=== PATIENT | female | born 1950 | race African-American/Black ===

== ENCOUNTER 2017-04-09 06:48 | Emergency (ER) | payer OTHER ==
[~2017-04-09] VITALS: Ht 160 cm; Wt 63.0 kg
[2017-04-09 06:53] VITALS: BP 150/97
[2017-04-09] MEDS ORDERED: SODIUM CHLORIDE 0.9% 500 ML IV ONE (07:03)
[2017-04-09 07:23] LABS: BASOPHILS % 1.2 % (0.0-2.0); EOSINOPHILS % 3.4 % (0.0-5.0); HEMATOCRIT. 37.8 % (36.0-48.0); HEMOGLOBIN. 13.2 g/dL (12.0-16.0); LYMPHOCYTES % 30.9 % (20.0-50.0); MEAN CORPUSCULAR HEMOGLOBIN 30.8 pg (28.0-32.0); MEAN PLATELET VOLUME 8.1 fl (7.4-10.4); MONOCYTES % 9.5 % (2.0-8.0); PLATELET 271 x1000/uL (130-400); RED BLOOD CELL COUNT 4.29 mill/uL (4.2-5.4); RED CELL DISTRIBUTION WIDTH 13.2 % (11.6-14.6)
[2017-04-09 07:32] LABS: PARTIAL THROMBOPLASTIN TIME 26.8 sec (23.4-31.0); PROTHROMBIN TIME 10.8 sec (9.4-11.6)
[2017-04-09 07:33] LABS: CHLORIDE 107 mEq/L (98-107)
[2017-04-09 07:41] LABS: CARBON DIOXIDE 28 mEq/L (21-32); ETHANOL BLOOD < 10 mg/dL; LDL CHOLESTEROL 127 mg/dL (5-100); TROPONIN I < 0.02 ng/mL (0.00-0.04)
[2017-04-09] MEDS ORDERED: SODIUM CHLORIDE 0.9% 1,000 ML IV ONE (07:48)
[2017-04-09] MEDS ORDERED: ASPIRIN 81MG TABLET PO ONE (08:00)
== END 2017-04-09 13:12 | disposition left against medical advice (07) ==
LOC: ER 06:48 → EDBEDREQSVC 07:58 → EDBEDREQ 07:58 → CANRESERV 10:38 → ENRESERV 10:38 → ER 13:12 → CANBEDREQ 15:39
DX: E86.0 Dehydration (principal); R20.0 Anesthesia of skin; I10 Essential (primary) hypertension; F17.200 Nicotine dependence, unspecified, uncomplicated
CPT/HCPCS: 36415; 70450; 71010; 80053; 83690; 83721; 83880; 84484; 85025; 85610; 85730; 93005; 96360; 99285; G0482; J7030; J7040